=== PATIENT | female | born 1990 | race Caucasian/White ===

== ENCOUNTER → 2020-02-02 | Outpatient (CLI) | payer OTHER | LOC: M.LAB 12:05 | DX: Z11.59 Encounter for screening for other viral diseases (principal); Z20.828 Contact with and (suspected) exposure to other viral communicable diseases ==

== ENCOUNTER → 2020-05-27 | Outpatient (CLI) | payer OTHER | LOC: M.LAB 10:53 | PROVIDERS: ATTEND Nurse Practitioner Family | DX: Z32.01 Encounter for pregnancy test, result positive (principal) ==

== ENCOUNTER → 2020-05-30 | Outpatient (CLI) | payer OTHER | LOC: M.LAB 12:44 | PROVIDERS: ATTEND Nurse Practitioner Family | DX: Z32.01 Encounter for pregnancy test, result positive (principal) ==

== ENCOUNTER → 2020-06-06 | Outpatient (CLI) | payer OTHER | LOC: M.ULTRA 13:30 | PROVIDERS: ATTEND Nurse Practitioner Family | DX: O20.0 Threatened abortion (principal) ==

== ENCOUNTER → 2020-06-12 | Outpatient (CLI) | payer OTHER | LOC: M.LAB 23:44 | PROVIDERS: ATTEND Personal Emergency Response Attendant | DX: O03.9 Complete or unspecified spontaneous abortion without complication (principal); Z3A.00 Weeks of gestation of pregnancy not specified ==

== ENCOUNTER → 2020-06-18 | Outpatient (CLI) | payer OTHER | LOC: M.ULTRA 10:30 | PROVIDERS: ATTEND Nurse Practitioner Family | DX: O20.0 Threatened abortion (principal) ==

== ENCOUNTER 2020-06-27 17:57 | Emergency (ER) | payer OTHER ==
[~2020-06-27] VITALS: Ht 160 cm; Wt 46.7 kg
[2020-06-27 18:03] VITALS: BP 145/86
== END 2020-06-27 18:35 | disposition home or self-care (01) ==
LOC: M.ERS 17:57
DX: B34.9 Viral infection, unspecified (principal); Z20.828 Contact with and (suspected) exposure to other viral communicable diseases